=== PATIENT | male | born 1990 | race Two or more races ===

== ENCOUNTER 2023-10-05 18:00 | Emergency (ER) | payer OTHER, SELFPAY ==
[2023-10-05 18:09] VITALS: BP 128/86
[2023-10-05 18:11] VITALS: BMI 22.5
--- NOTE | 2023-10-05 20:01 | ED.GENMED ---
History of Present Illness
General
Chief Complaint: Throat Problem
Time Seen by Provider: 10/05/23 19:43
Travel History
Have you had any contact with someone who has COVID-19?: No
Do you have any symptoms of coronavirus? Fever > 100 degrees, chills, cough, shortness of breath, sore throat, loss of taste or smell, muscle aches, or headache?: No
History of Present Illness
History of Present Illness:
33-year-old otherwise healthy male who presents the emergency department for evaluation of sore throat for the past day. He reports fever yesterday that resolved spontaneously this morning. No choking or dysphagia. No cough or shortness of
breath. No medication taken for pain control. No ill contacts at home.
Review of Systems
Review of Systems
Allergies reviewed?: Yes
All Other Systems: ROS reviewed and negative except as documented in HPI and ROS
Phy Exam
Physical Exam
Physical Exam:
GEN: Well appearing, NAD, WDWN
HEENT: Oral mucosa moist, no scleral icterus, mild oropharyngeal erythema, no tonsillar hypertrophy or exudates, midline uvula with no swelling
Cardiac: Regular rate
Lung: No respiratory distress, no tachypnea
MSK: No gross deformity or injuries
Skin: Good color, no pallor or jaundice, no rashes
Neuro: AO x3, moves all extremities freely
Psych: Calm, cooperative
Course
Orders/Labs/Results
Orders:
Orders
10/05/23 18:15
Rapid Strep Group A Urgent
[place] Source: Throat/Pharynx
Specimen Description:
Date Specimen was Collected: 10/05/23
Time Specimen was Collected: 18:14
Throat Culture, Comprehensive Urgent
[place] Source: Throat/Pharynx
Specimen Description:
Date Specimen was Collected: 10/05/23
Time Specimen was Collected: 18:14
Vital Signs
Initial and Last Documented VS:
Initial Vital Signs
Temp Pulse Resp BP Pulse Ox
98.9 F 77 18 128/86 98
10/05/23 18:09 10/05/23 18:09 10/05/23 18:09 10/05/23 18:09 10/05/23 18:09
Last Documented Vital Signs
Temp Pulse Resp BP Pulse Ox
98.9 F 77 18 128/86 98
10/05/23 18:09 10/05/23 18:09 10/05/23 18:09 10/05/23 18:09 10/05/23 18:09
MDM/Problems Addressed
MDM/Problems Addressed:
Physical exam is unremarkable, rapid strep test is negative, culture in process. No indication for empiric antibiotics, no clinical signs of retropharyngeal abscess or peritonsillar abscess
*Critical Care Note
Total Time (30-74mins, 75-104mins- exclusive of procedures): Not Applicable
ED Attending Note
-
Portions of this chart may have been created with voice recognition software.� Occasional wrong word or��sound alike� substitutions may have occurred due to the inherent limitations of voice recognition software.
Discharge Plan
Departure
Patient Disposition: Home (Routine Discharge)
Date of Disposition: 10/05/23
Time of Disposition: 20:06
Patient with high blood pressure during this ER visit?: No
Discharge Problem:
Acute viral pharyngitis
Instructions: Viral Pharyngitis
Interventions
Interventions:
*Risk Screen - Suicide Last Done: 10/05/23 18:11
*General Assessment Last Done: 10/05/23 20:26
*Neglect/Abuse Screening Last Done: 10/05/23 18:11
ED- Fall Risk Assessment Last Done: 10/05/23 19:53
*ED COVID-19 Vaccine History Last Done: 10/05/23 19:53
*Nursing Disposition Last Done: 10/05/23 20:26
ED-EENT Assessment Last Done: 10/05/23 19:53
ED- Pulmonary Assessment Last Done: 10/05/23 19:53
Discharge Date and Time
Discharge Date/Time: 10/05/23 20:27
Print Language: [place]
== END 2023-10-05 20:27 | disposition home or self-care (01) ==
LOC: EMR 18:00
PROVIDERS: EMERGENCY PHYSICIAN Emergency Medicine
DX: J02.8 Acute pharyngitis due to other specified organisms (principal); B97.89 Other viral agents as the cause of diseases classified elsewhere
CPT/HCPCS: 99283; 87070; 87880

== ENCOUNTER 2024-06-15 12:41 | Emergency (ER) | payer OTHER, SELFPAY ==
[2024-06-15 13:16] VITALS: BP 129/77
[2024-06-15 13:50] LABS: % Basophils 0.3 % (0-2); % Eosinophils 0.4 % (0-6); % Immature Granulocytes 0.1 % (0-0.5); % Lymphocytes 18.6 % (20.5-51.1); % Monocytes 4.8 % (1.7-9.3); % Neutrophils 75.8 % (42.2-75.2); Absolute Lymphocytes 1.7 10^3/uL (1.2-3.4); Absolute Monocytes 0.4 10^3/uL (0.1-0.6); Absolute Neutrophils 6.9 10^3/uL (1.4-6.5); Hematocrit 44.1 % (39.0-52.0); Hemoglobin 14.8 g/dL (13.0-18.0); Mean Corp Hgb Conc. 33.6 g/dL (33.0-37.0); Mean Corpuscular Hgb 30.1 pg (27.0-31.0); Mean Corpuscular Volume 89.6 fL (80.0-94.0); Nucleated Red Blood Cells % 0 % (-); Platelet Count 200 10^3/uL (130-400); Red Blood Cell Count 4.92 10^6/uL (4.70-6.10); Red Cell Dist. Width 12.6 % (11.5-14.5); White Blood Cell Count 9.1 10^3/uL (4.8-10.8)
[2024-06-15 13:54] LABS: ALT (SGPT) 17 U/L (0-50); AST (SGOT) 22 U/L (17-59); Albumin 4.6 g/dl (3.5-5.0); Alkaline Phosphatase 87 U/L (38-126); Blood Urea Nitrogen 12 mg/dl (9-20); Calcium 10.1 mg/dl (8.4-10.2); Carbon Dioxide 29 mmol/L (22-30); Chloride 104 mmol/L (98-107); Glucose 98 mg/dl (70-99); Potassium 4.8 mmol/L (3.5-5.1); Sodium 142 mmol/L (135-145); Total Bilirubin 0.4 mg/dl (0.2-1.3); Total Protein 7.8 g/dl (6.3-8.2); eGFR > 60.00
--- NOTE | 2024-06-15 15:58 | ED.GENMED ---
History of Present Illness
<Luiza Vargas PA-C - Last Filed: 06/15/24 18:46>
General
Chief Complaint: Dizziness
Source: patient
Exam Limitations: none
Time Seen by Provider: 06/15/24 15:55
Nursing documentation reviewed up to this point in time: agreed with
History of Present Illness
History of Present Illness:
33-year-old male with no past medical history presents emergency department today with dizziness that started around 5 AM this morning when he woke up. Patient reports that he was lying in bed and noticed his symptoms when he woke up and open his
eyes. Patient reports that he stood up and went to walk around and noted that his symptoms resolved. Patient reports that later in the day like down again and noticed that his symptoms came back on. He is most symptomatic with lying down lying
supine or turning his head. He did have 2 episodes of vomiting earlier today because of his symptoms. He has no headaches. He is no dysphagia, dysarthria, he notes no changes in his gait, denies any neck pain, denies any head or neck trauma.
Patient denies any syncopal episodes. Patient states that he had two similar episodes in the past a few years ago that lasted a couple hours and symptoms eventually went away on their own he has not required an ER visit for any symptoms in the
past. Patient denies hearing loss, ear pain.
Review of Systems
<Luiza Vargas PA-C - Last Filed: 06/15/24 18:46>
Review of Systems
All Other Systems: ROS reviewed and negative except as documented in HPI and ROS
Phy Exam
<Luiza Vargas PA-C - Last Filed: 06/15/24 18:46>
Physical Exam
Physical Exam:
General: Patient is well appearing and in no acute distress; non-toxic
Skin: Warm and dry, no rashes or lesions
Head: Normocephalic, atraumatic
Eyes: Sclera non-icteric. EOMs intact. Right beating horizontal nystagmus noted with Calhoun-Hallpike maneuver.
Cardiac: Regular rate and rhythm, no murmurs
Peripheral Vascular: No lower extremity swelling or edema.
Pulm: Normal respiratory effort
Neuro: CN II-XII intact, no focal neurologic deficits. Normal finger-nose, futk-al-jnor testing. Negative pronator drift. Normal gate.
Psychiatric: Appropriate mood and affect.
Course
Leonalt;Luiza Vargas PA-C - Last Filed: 06/15/24 18:46>
Orders/Labs/Results
Orders:
Orders
06/15/24 13:21
CMP [Comprehensive Metabolic Panel] Urgent
Complete Blood Count/With Diff Urgent
06/15/24 16:41
Meclizine [Antivert] 25 mg PO NOW STA
Ondansetron HCl [Zofran] 4 mg PO NOW STA
06/15/24 16:42
Ondansetron Orally Disint [Zofran Odt (Orally Disintegrating)] 4 mg .ROUTE .STK-MED ONE
06/15/24 16:43
Meclizine [Antivert] 25 mg .ROUTE .STK-MED ONE
06/15/24 16:46
Ondansetron Orally Disint [Zofran Odt (Orally Disintegrating)] 4 mg PO NOW STA
06/15/24 17:50
Diazepam [Valium] 2 mg PO NOW STA
Meclizine [Antivert] 25 mg PO NOW STA
Abnormal Lab Results
06/15/24
13:21
MPV 12.0 H fL
(7.4-10.4)
Absolute Neuts (auto) 6.9 H 10^3/uL
(1.4-6.5)
Neutrophils % 75.8 H %
(42.2-75.2)
Lymphocytes % 18.6 L %
(20.5-51.1)
01/13/25 13:21
06/15/24 13:21
Vital Signs
Initial and Last Documented VS:
Initial Vital Signs
Temp Pulse Resp BP Pulse Ox
98.2 F 76 16 129/77 98
06/15/24 13:16 06/15/24 13:16 06/15/24 13:16 06/15/24 13:16 06/15/24 13:16
Last Documented Vital Signs
Temp Pulse Resp BP Pulse Ox
98.2 F 70 14 118/67 100
06/15/24 13:16 06/15/24 18:18 06/15/24 18:18 06/15/24 18:18 06/15/24 18:18
<Lisa Mcdaniel MD - Last Filed: 06/15/24 17:38>
Orders/Labs/Results
Orders:
Orders
06/15/24 13:21
CMP [Comprehensive Metabolic Panel] Urgent
Complete Blood Count/With Diff Urgent
06/15/24 16:41
Meclizine [Antivert] 25 mg PO NOW STA
Ondansetron HCl [Zofran] 4 mg PO NOW STA
06/15/24 16:42
Ondansetron Orally Disint [Zofran Odt (Orally Disintegrating)] 4 mg .ROUTE .STK-MED ONE
06/15/24 16:43
Meclizine [Antivert] 25 mg .ROUTE .STK-MED ONE
06/15/24 16:46
Ondansetron Orally Disint [Zofran Odt (Orally Disintegrating)] 4 mg PO NOW STA
06/15/24 17:50
Diazepam [Valium] 2 mg PO NOW STA
Meclizine [Antivert] 25 mg PO NOW STA
Abnormal Lab Results
06/15/24
13:21
MPV 12.0 H fL
(7.4-10.4)
Absolute Neuts (auto) 6.9 H 10^3/uL
(1.4-6.5)
Neutrophils % 75.8 H %
(42.2-75.2)
Lymphocytes % 18.6 L %
(20.5-51.1)
06/15/24 13:21
06/15/24 13:21
Vital Signs
Initial and Last Documented VS:
Initial Vital Signs
Temp Pulse Resp BP Pulse Ox
98.2 F 76 16 129/77 98
06/15/24 13:16 06/15/24 13:16 06/15/24 13:16 06/15/24 13:16 06/15/24 13:16
Last Documented Vital Signs
Temp Pulse Resp BP Pulse Ox
98.2 F 70 14 118/67 100
06/15/24 13:16 06/15/24 18:18 06/15/24 18:18 06/15/24 18:18 06/15/24 18:18
<Luiza Vargas PA-C - Last Filed: 06/15/24 18:46>
MDM/Problems Addressed
Differential Diagnosis Includes:
see below
MDM/Problems Addressed:
NUMBER AND COMPLEXITY OF PROBLEMS ADDRESSED AT THE ENCOUNTER
� Chronic conditions affecting care: n/a
� Acute Exacerbation and/or Progression of Chronic Illness: n/a
� Differential Diagnosis includes: BPPV, vestibular neuritis, meniere's disease, CVA
AMOUNT AND/OR COMPLEXITY OF DATA TO BE REVIEWED AND ANALYZED
Laboratory Studies: CBC and CMP unremarkable
Other:
� Review of other/old records: Reviewed ER physician documentation from 10/05/23, patient seen for acute viral pharyngitis and discharged
� Clinical information was obtained by an independent historian: n/a
� Prescriptions/Medications Considered but not given: none
� Further testing considered but not performed: n/a
RISK OF COMPLICATIONS AND/OR MORBIDITY OR MORTALITY OF PATIENT MANAGEMENT
� Social determinants of health affecting care: none
� Discussion with other providers: ER attending
� Escalation of care including admission/observation vs risk of discharge considered:
33-year-old male with no past medical history presents emergency department today with concerns of dizziness that started upon waking this morning. It comes and goes. Is elicited when he lays supine or when he looks from [id number], notices
symptoms are worse when he looks to the right. He denies any recent head or neck trauma. He denies any fevers or chills. He has no dysarthria, dysphagia, diplopia. On physical exam he is well-appearing is no active vomiting, he does have right
beating horizontal nystagmus elicited with Calhoun-Hallpike maneuver. He has no focal deficits, he has normal finger-nose, heel leiva testing, he is in normal gait, no indication for CAT scan at this time. Initially patient was given meclizine and
Zofran. Patient noted no change in improvement to his symptoms with this medication. Patient was then given another dose of meclizine as well as Valium. Patient was then reassessed and patient notes that this did help improve his symptoms. I did
give patient a pamphlet for vestibular therapy. Highly suspect BPPV. Recommended evaluation by vestibular therapy and ENT. Patient stable for discharge.
<Luiza Vargas PA-C - Last Filed: 06/15/24 18:46>
*Pulse Oximetry
Patient hypoxic: no
*Critical Care Note
Total Time (30-74mins, 75-104mins- exclusive of procedures): Not Applicable
ED Attending Note
<Luiza Vargas PA-C - Last Filed: 06/15/24 18:46>
-
Portions of this chart may have been created with voice recognition software.� Occasional wrong word or��sound alike� substitutions may have occurred due to the inherent limitations of voice recognition software.
<Lisa Mcdaniel MD - Last Filed: 06/15/24 17:38>
ED Attending Note
Patient seen and examined by attending physician: Yes
I performed the substantive portion of visit, reviewed & personally made and approve the management plan that is documented in note by myself or LENORE.: Yes
ED Attending Note:
33-year-old male with complaints of dizziness that started earlier today. This was associated with vomiting. He does not have symptoms with head in midline, but notes when turning his head to either side he gets a sense of spinning and nausea.
Patient denies other symptoms. He denies fever, chills, headache, recent trauma, neck pain, diplopia, dysarthria, dysphagia, numbness, tingling, focal weakness, clumsiness, or other complaints. On exam, pt awake alert in nad no spont nystagmus at
rest however reproduce to R horizontal. nl neuro exam otherwise. strongy suspect peripheral vertigo/bppv
Discharge Plan
Departure
Patient Disposition: Home (Routine Discharge)
Date of Disposition: 06/15/24
Time of Disposition: 18:35
Patient with high blood pressure during this ER visit?: Yes
Condition: Good
Discharge Problem:
Vertigo
Instructions: Vertigo (a Type of Dizziness) (DC), BLOOD PRESSURE
Prescriptions:
New
meclizine 25 mg tablet
25 mg PO QID Qty: 10 0RF
Referrals:
NONE,* [Family Provider] -
Activity Restrictions/Additional Instructions:
You have been given a pamphlet for vestibular therapy. I highly recommend evaluation by a vestibular therapist.
Meclizine has been sent to your pharmacy. You can take one tablet every 6 hours as needed for dizziness/vertigo.
DISCUSSED, PLEASE RETURN EMERGENCY DEPARTMENT SHOULD YOU DEVELOP ANY ACUTE WORSENING OF YOUR SYMPTOMS, INTRACTABLE NAUSEA OR VOMITING, TROUBLE SWALLOWING, TROUBLE WALKING, TROUBLE SPEAKING, VISUAL LOSS, DOUBLE VISION, GENERALIZED WEAKNESS, FEVERS
OR CHILLS, OR ANY OTHER SIGNS OR SYMPTOMS CONCERNING TO YOU.
Interventions
Interventions:
*Risk Screen - Suicide Last Done: 06/15/24 13:16
*General Assessment Last Done: 06/15/24 16:13
*Neglect/Abuse Screening Last Done: 06/15/24 13:16
ED- Fall Risk Assessment Last Done: 06/15/24 16:15
*ED COVID-19 Vaccine History Last Done: 06/15/24 16:13
ED- Neurological Assessment Last Done: 06/15/24 16:15
ED Swallowing Screen Last Done: 06/15/24 16:15
Discharge Date and Time
Print Language: CITIZEN OF [place]
--- NOTE | 2024-06-15 16:10 | EDRN ---
Enrique HARRISON in room w/ pt at this time.
[2024-06-15] MEDS: ANTIVERT 25 MG PO ×2 (16:45→18:10)
[2024-06-15] MEDS: ZOFRAN ODT (ORALLY DISINTEGRATING) 4 MG PO (16:47)
[2024-06-15] MEDS: VALIUM 2 MG PO (18:09)
--- NOTE | 2024-06-15 18:15 | EDRN ---
Pt still w/ dizziness noted when turning his head to R or L. M. Fredrick HARRISON was in and ordered valium and another meclozine which were given.
[2024-06-15 18:18] VITALS: BP 118/67; BMI 22.7
== END 2024-06-15 18:48 | disposition home or self-care (01) ==
LOC: EMR 12:41
PROVIDERS: Emergency Medicine; EMERGENCY PHYSICIAN Emergency Medicine
DX: R42 Dizziness and giddiness (principal); R11.2 Nausea with vomiting, unspecified
CPT/HCPCS: 99283; 80053; 85025